=== PATIENT | female | born 1950 | race Caucasian/White ===

== ENCOUNTER 2017-06-18 21:09 | Observation (INO) | payer MEDICARE, OTHER ==
[~2017-06-18] VITALS: Ht 162.6 cm; Wt 62.0 kg
[2017-06-18 21:25] VITALS: BP 158/83; PULSE 90; RESP 16; TEMP 98.2; O2SAT 96
[2017-06-18 21:45] VITALS: BP 140/75; PULSE 86; RESP 20; TEMP 98.4; O2SAT 98
[2017-06-18] MEDS ORDERED: LEVO.05 PO (22:08)
[2017-06-18] MEDS ORDERED: CLIMDIS I-DERMAL (22:08)
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
[2017-06-18] MEDS: ACETAMINOPHEN/HYDROcodone 325 MG/5 MG TAB PO ONE (23:15)
--- NOTE | 2017-06-18 23:52 | RADRPT ---
EXAM DATE/TIME: 06/18/2017 23:22 [facility] COMPARISON: No previous studies available for comparison. INDICATIONS : Right shoulder pain after fall off of horse. MEDICAL HISTORY : None. SURGICAL HISTORY : None. ENCOUNTER: Initial ACUITY: 1 day PAIN SCORE: 6/10 LOCATION: Right shoulder FINDINGS: Multiple view examination of the right shoulder demonstrates no evidence of fracture or dislocation. The glenohumeral and acromioclavicular joints are maintained. There is normal range of motion betwe en internal and external rotation. Bony mineralization is normal. CONCLUSION: Normal examination for a patient of this age. Matt Osuna MD on June 18, 2017 at 23:50 Board Certified Radiologist. This report was verified electronically.
--- NOTE | 2017-06-18 23:55 | RADRPT ---
EXAM DATE/TIME: 06/18/2017 23:24 [facility] COMPARISON: No previous studies available for comparison. INDICATIONS : Right scapula pain after fall off of horse. MEDICAL HISTORY : None. SURGICAL HISTORY : None. ENCOUNTER: Initial ACUITY: 1 day PAIN SCORE: 6/10 LOCATION: Right scapula. FINDINGS: Two view examination of the right scapula demonstrates no evidence of fracture. The glenohumeral and acromioclavicular joints are maintained. Bony mineralization is normal. CONCLUSION: Normal examination for a patient of this age. Matt Osuna MD on June 18, 2017 at 23:53 Board Certified Radiologist. This report was verified electronically.
--- NOTE | 2017-06-18 23:55 | RADRPT ---
EXAM DATE/TIME: 06/18/2017 23:22 [facility] COMPARISON: No previous studies available for comparison. INDICATIONS : Right hip pain after fall off of horse. MEDICAL HISTORY : None. SURGICAL HISTORY : None. ENCOUNTER: Initial ACUITY: 1 day PAIN SCORE: 8/10 LOCATION: Right hip. FINDINGS: Examination of the right hip was performed with AP Pelvis. There is moderate osteoarthritis involving the right hip joint. There is narrowing of the joint space. There is subchondral cyst on both sides the joint. No acute fracture or joint dislocation is seen at the hip. However, there is a faint lucen cy involving the inferior right pubic ramus suspicious of a nondisplaced fracture. There is good alig nment at the pubic symphysis.. CONCLUSION: 1. Lucency involving the inferior right pubic ramus suggesting a nondisplaced cortical fracture. 2. Moderate osteoarthritis of the right hip joint. 3. No evidence of acute fracture or joint dislocation at the hip joint. Matt Osuna MD on June 18, 2017 at 23:51 Board Certified Radiologist. This report was verified electronically.
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
[2017-06-19] MEDS ORDERED: MORPHINE SULFATE 8 MG/ML INJ IV PUSH PRN (00:45)
[2017-06-19] MEDS ORDERED: SODIUM CHLORIDE 0.9% FLUSH 10 ML FLUSH IV FLUSH PRN (00:45)
[2017-06-19] MEDS ORDERED: BISACODYL 10 MG SUPP RECTAL PRN (00:45)
[2017-06-19] MEDS ORDERED: ACETAMINOPHEN/HYDROcodone 325 MG/10 MG TAB PO PRN (00:45)
[2017-06-19] MEDS ORDERED: ONDANSETRON HCL 4 MG/2 ML VIAL IVP PRN (00:45)
[2017-06-19] MEDS ORDERED: ACETAMINOPHEN 325 MG TAB PO PRN ×2 (00:45)
[2017-06-19] MEDS ORDERED: ACETAMINOPHEN/HYDROcodone 325 MG/5 MG TAB PO PRN (00:45)
[2017-06-19] MEDS ORDERED: SENNOSIDES 8.6 MG TAB PO PRN (00:45)
[2017-06-19] MEDS ORDERED: LACTULOSE SYRUP 20 GM/30 ML CUP PO PRN (00:45)
[2017-06-19] MEDS ORDERED: MAGNESIUM HYDROXIDE SUSP 30 ML CUP PO PRN (00:45)
[2017-06-19] MEDS ORDERED: NALOXONE HCL 0.4 MG/ML AMP IV PRN ×2 (00:45)
[2017-06-19 02:47] VITALS: BP 127/75; PULSE 82; RESP 18; TEMP 97.5; O2SAT 95
[2017-06-19 04:58] VITALS: BP 111/72; PULSE 78; RESP 16; TEMP 97.7; O2SAT 95
[2017-06-19] MEDS ORDERED: LEVOTHYROXINE SODIUM 50 MCG TAB PO SCH (07:00)
[2017-06-19 07:11] LABS: AUTOMATED NEUTROPHIL # 8.2 TH/MM3 (1.8-7.7); BASOPHIL % 0.2 % (0.0-2.0); EOSINOPHIL # 0.1 TH/MM3 (0-0.4); EOSINOPHIL % 0.9 % (0.0-4.0); HEMATOCRIT 41.6 % (35.0-46.0); HEMO FLAGS DIFF FINAL; LYMPH % 12.8 % (9.0-44.0); LYMPHOCYTE # 1.3 TH/MM3 (1.0-4.8); MEAN CELL VOLUME 84.3 FL (80.0-100.0); MEAN CORPUSCULAR HGB CONC 33.2 % (32.0-36.0); MONO % 8.2 % (0.0-8.0); NEUT % 77.9 % (16.0-70.0); PLATELET COUNT 186 TH/MM3 (150-450); RED BLOOD COUNT 4.93 MIL/MM3 (4.00-5.30); WHITE BLOOD COUNT 10.6 TH/MM3 (4.0-11.0)
[2017-06-19 07:21] VITALS: BP 121/66; PULSE 74; RESP 16; TEMP 97.9; O2SAT 96
[2017-06-19 07:36] LABS: BICARBONATE 23.6 MEQ/L (21.0-32.0); POTASSIUM 3.6 MEQ/L (3.5-5.1)
[2017-06-19] MEDS ORDERED: DOCUSATE SODIUM 50 MG/SENNA 8.6 MG TAB PO SCH (09:00)
[2017-06-19] MEDS ORDERED: SODIUM CHLORIDE 0.9% FLUSH 10 ML FLUSH IV FLUSH SCH (09:00)
[2017-06-19] MEDS ORDERED: ACET300T PO (10:25)
[2017-06-19] MEDS ORDERED: MEDI220T PO (10:25)
--- NOTE | 2017-06-19 10:26 | HHI.DCPOC ---
Discharge Care Plan Diagnosis: (1) Fracture of right inferior pubic ramus (2) Loss of consciousness (3) Hypothyroidism Goals to Promote Your Health * To prevent worsening of your condition and complications * To maintain your health at the optimal level Directions to Meet Your Goals Take your medications as prescribed Follow your dietary instruction Follow activity as directed Keep your appointments as scheduled Take your immunizations and boosters as scheduled If your symptoms worsen call your PCP, if no PCP go to Urgent Care Center or Emergency Room Smoking is Dangerous to Your Health. Avoid second hand smoke Call the 24-hour hour crisis hotline for domestic abuse at Shantel Ledezma MD R1 Jun 19, 2017 10:26
[2017-06-19] MEDS ORDERED: KETOROLAC TROMETHAMINE 10 MG TAB PO ONE (10:30)
[2017-06-19 11:23] VITALS: BP 126/70; PULSE 68; RESP 16; TEMP 97.8; O2SAT 95
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
== END 2017-06-19 15:00 | disposition home or self-care (01) ==
LOC: NEPE 21:09 → NEDA 06-19 00:23 → NEPFCDU 06-19 01:03
PROVIDERS: ADMIT Family Medicine; ATTEND Family Medicine
DX: S32.591A Other specified fracture of right pubis, initial encounter for closed fracture (principal); E03.9 Hypothyroidism, unspecified; R30.0 Dysuria; R51 Headache; M16.11 Unilateral primary osteoarthritis, right hip; W17.89XA Other fall from one level to another, initial encounter; Y93.52 Activity, horseback riding
CPT/HCPCS: 70450; 73010; 73030; 73502; 80048; 82306; 85025; 97161; 99285; G0378